=== PATIENT | female | born 1960 | race Caucasian/White ===

== ENCOUNTER 2017-02-06 05:54 | Day surgery (SDC) | payer MEDICAID ==
[2017-02-05 11:14] LABS: BASOPHILS 0.2 % (0-2); EOSINOPHILS 2.3 % (0-7); HEMATOCRIT 33.7 % (36.0-48.0); HEMOGLOBIN 11.6 g/dL (12-16); IMMATURE GRANULOCYTES 0.2 % (0-5); LYMPHOCYTES 23.1 % (15-50); MCH 31.9 pg (26.0-34.0); MCHC 34.4 g/dL (31.0-37.0); MCV 92.6 fL (80.0-100.0); MEAN PLATELET VOLUME 9.1 fL (7.4-10.4); MONOCYTES 6.8 % (2-11); NEUTROPHILS 67.4 % (40-80); PLATELET COUNT 242 10x3/uL (130-400); RBC 3.64 10x6/uL (4.00-5.40); RDW 13.2 % (11.5-14.5); WBC 5.3 10x3/uL (4.8-10.8)
[2017-02-05 11:18] LABS: APTT 26.1 SECONDS (22.8-39.4); INR 0.98 (0.85-1.17); PROTIME 12.8 SECONDS (11.6-15.0)
[2017-02-05 11:20] LABS: ANION GAP 15.1 mmol/L (8-16); CALCIUM 8.5 mg/dL (8.5-10.1); CARBON DIOXIDE 24.5 mmol/L (21.0-32.0); CREATININE - SERUM 3.4 mg/dL (0.6-1.3); POTASSIUM - SERUM 3.6 mmol/L (3.5-5.1)
[~2017-02-06] VITALS: Ht 154.9 cm; Wt 74.4 kg
[~2017-02-06 05:54] MED LIST: ULTRAM50 MG PO
[2017-02-06] MEDS ORDERED: HYDROXYZINE HCL10 MG PO (07:06)
[2017-02-06] MEDS ORDERED: THERMOTABS 1 GM1 GM PO ×2 (07:07→07:08)
[2017-02-06] MEDS ORDERED: CIPRO250 MG PO (07:08)
[2017-02-06] MEDS ORDERED: PROAIR HFA8.5 GM INH (07:09)
[2017-02-06] MEDS ORDERED: TRAZODONE HCL50 MG PO (07:10)
[2017-02-06] MEDS ORDERED: DIFLUCAN100 MG PO (07:10)
[2017-02-06 07:11] VITALS: BP 100/57; Ht 154.9 cm; Wt 74.4 kg
--- NOTE | 2017-02-06 08:20 | NUR ---
0815-SPOKE WITH BARB SCHAEFFER ABOUT SODIUM LEVEL OF 125,NO NEW ORDERS RECEIVED.
--- NOTE | 2017-02-06 14:03 | NUR ---
1030-RECD FROM PACU. R ARM DRESSING DRY AND INTACT. UNABLE TO PALPATE THRILL OR AUSCULTATE BRUIT. DR ZARAGOZA MADE AWARE PER FAREED [place] R.N. IN PACU. R ARM NUMB, DENIES PAIN. SLING IN PLACE. 1045-TAKING SIPS OF LIQUIDS WITHOUT NAUSEA 1100-FULL LIQUID TRAY OFFERRED AND PATIENT DECLINED, GOING TO [facility] AFTER DISCHARGE. 1130-DR ZARAGOZA STATES NO PRESCRIPTION FOR PAIN MEDS, USE TYLENOL PRN. PATIENT INFORMED. IV D/C. VOIDS AND DRESSED. 1145-DISCHARGE INSTRUCTIONS REVIEWED. 1200-D/C HOME VIA WHEELCHAIR.
--- NOTE | 2017-02-17 15:06 | OP ---
PATIENT NAME: BLOSSOM GUERRIER MEDICAL RECORD: [id number] :62 LOCATION:[facility] ADMISSION DATE: SURGEON: POPPY ZARAGOZA MD DATE OF OPERATION: 02/06/2017 REFERRING PHYSICIAN: Navarro Jimenez MD PREOPERATIVE DIAGNOSES: CKD V and thrombosed right brachial artery to basilic vein Morgan-type AV fistula, created over a year ago. POSTOPERATIVE DIAGNOSES: CKD V and thrombosed right brachial artery to basilic vein Morgan-type AV fistula, created over a year ago. OPERATION PERFORMED: Creation of a new right arm brachial artery basilic vein Morgan-type AV fistula, slightly proximal to the fistula created last year. SURGEON: Poppy Zaragoza MD ANESTHESIA: Regional nerve block plus general per [employer]. PREOPERATIVE NOTE: Ms. Guerrier is a 57-year-old white female with chronic kidney disease, referred to me by Dr. Jimenez a little over a year ago. I created a brachiobasilic Morgan-type AV fistula in the right arm with plans to perform a delayed translocation procedure. The fistula however thrombosed in the early postop period. I believe it was decided at that point that we would wait until she was much closer to actually requiring dialysis before going on and implanting a graft as at that time I did not see any other dialysis access or fistula sites likely to be successful. I saw her in the office again just a couple of weeks ago, and at that time, I thought I detected pulsatile Doppler continuous flow in the basilic vein above the anastomosis. She is now progressing into renal insufficiency and may require a graft. She is brought to the operating room at this time to either go ahead with a translocated basilic vein fistula creation or implant an AV graft. The patient's preoperative blood pressure is only about 100/70. Intraoperatively, her pressure was around 80 systolic unless she was given pressor agents. PROCEDURE IN DETAIL: After a nerve block was administered in the holding area, she was brought to the OR and given general anesthesia per [employer]. The right arm was prepped and draped in a sterile manner. I examined the arm with ultrasound after applying nitroglycerin paste and I used a [place] drain as a proximal venous tourniquet. I found no other satisfactory veins other than the basilic vein. I could see that the basilic brachial anastomosis was thrombosed, but the basilic vein above that looked about half a centimeter in diameter and probably useful for creation of a fistula. At that point, I decided to go ahead and try one more time to create a brachiobasilic AV fistula. If this fistula thrombosed, she will need to be returned to the operating room very shortly for implantation of a graft. I would plan after that long-term anticoagulation to maintain patency as well as getting laboratory studies for hypercoagulability workup, but I think trying a staged procedure to create a translocated basilic fistula is worthwhile. I reopened the incision at the antecubital space and extended it a small distance cephalad on the medial aspect of the arm. I exposed the basilic vein OPERATIVE REPORT [id number] BLOSSOM GUERRIER above the arterial anastomosis and I noted that actually it was the median cubital branch of the basilic vein which had been anastomosed to the brachial artery and that this juxta-anastomotic venous segment was now very, very sclerotic and thrombosed. The basilic vein proper in the forearm was patent, although fairly small caliber. The basilic vein above the junction of the forearm basilic vein and median cubital vein was the good one. I mobilized it thoroughly and treated it with topical papaverine. I then mobilized the brachial artery and controlled it with Silastic loops and treated it also with topical papaverine. The vein was transected and beveled. It was closed distally with Hemoclips. The vein was flushed with heparinized saline and again treated with more topical papaverine. The artery was occluded with vessel loops and opened for a distance of about 5 mm. The artery was flushed proximally and distally with heparinized saline and then end of vein to side of artery anastomosis was then performed with running 7-0 Prolene. When completed, the anastomosis suture line was sealed with Evicel fibrin glue, and after that, it had time to setup. The occluding loops were released and flow was established in the fistula. This was actually very good continuous pulsatile Doppler flow with continuous pulsatile Doppler flow in the brachial artery above it. Flow in the distal brachial artery was somewhat more poorer on Doppler exam. The flow in the radial and brachial arteries at the wrist by Doppler was quite excellent with triphasic pulsatile flow with good amplitude. I irrigated the wound with Ancef solution and infiltrated it with 0.25% Marcaine without epinephrine. The wound was then closed fairly loosely with interrupted-inverted 3-0 Vicryl and running intracuticular 4-0 Monocryl. The incision was then dressed with Cavilon skin prep, Maxorb Ag, and Tegaderm. The patient was awakened and taken to the recovery room in stable condition. Note, in the recovery room, there was a very weak audible bruit and the Tegaderm dressing prevents insonation with the Doppler. Blood loss during the operation was insignificant and unreplaced. All sponges, instruments, and needles were accounted for. No drain was used and no surgical specimen was submitted for histopathology. PLAN: I will have the patient back in my office next week. I will remove the dressing then and see if we can tell if the fistula is open. If it is patent and obviously the first step in this process is successful, I need to get her back to the operating room in 2 weeks for the translocation procedure. If, on the other hand, the fistula has failed, she will need to be returned to the operating room anyway for implantation of an AV graft. TRANSINT:[id number] Voice Confirmation ID: [id number] DOCUMENT ID: [id number] POPPY ZARAGOZA MD at 1506 CC: NAVARRO JIMENEZ MD [id number] DICTATION DATE: 02/06/17 1046 MARINE BIOLOGIST: 02/06/17 1425 [facility] 02/06/17 [id number] [place] [address]
== END 2017-02-06 12:00 | disposition home or self-care (01) ==
LOC: D.OPS 05:54 → D.PAN 08:00 → D.OPS 12:00
PROVIDERS: Internal Medicine Nephrology
DX: T82.868A Thrombosis due to vascular prosthetic devices, implants and grafts, initial encounter (principal); N18.5 Chronic kidney disease, stage 5; Z01.812 Encounter for preprocedural laboratory examination